=== PATIENT | male | born 1960 ===

== ENCOUNTER 2021-09-03 15:52 | Emergency (ER) | payer BC ==
[2021-09-03 16:15] VITALS: TEMP 98
[2021-09-03] MEDS ORDERED: PROPARACAINE 0.5% OPHTH DROPS 15 ML BTL BOTH EYES STA (16:34)
[2021-09-03 16:36] LABS: HCT 49.1 % (39.0-53.0); HGB 16.7 gm/dL (13.0-17.5); MCH 30.3 pg (25.0-35.0); MCHC 34.1 g/dL (31.0-37.0); MCV 88.9 fL (80.0-100.0); Mean Platelet Volume 7.5; Platelet Count 212 k/uL (150-450); RBC 5.52 m/uL (4.30-5.90); RDW 12.6 % (11.5-15.5); WBC 14.6 k/uL (3.8-10.6)
[2021-09-03 16:53] LABS: ALT 29 U/L (4-49); AST 29 U/L (17-59); African American GFR (CKD) >90 (>60 ml/min/1.73 sqM); Albumin 4.7 g/dL (3.5-5.0); Alkaline Phosphatase 74 U/L (38-126); Anion Gap 12 mmol/L; Blood Urea Nitrogen 12 mg/dL (9-20); Calcium 10.3 mg/dL (8.4-10.2); Carbon Dioxide 21 mmol/L (22-30); Chloride 102 mmol/L (98-107); Glucose 190 mg/dL (74-99); Non-African American GFR(CKD) >90 (>60 ml/min/1.73 sqM); Potassium 4.3 mmol/L (3.5-5.1); Sodium 135 mmol/L (137-145); Total Bilirubin 0.7 mg/dL (0.2-1.3); Total Protein 8.3 g/dL (6.3-8.2)
--- NOTE | 2021-09-03 17:19 | ED ---
General Adult HPI - General Chief complaint: Eye Problems Stated complaint: Neurosymptoms Time Seen by Provider: 09/03/21 16:34 Source: patient, RN notes reviewed Mode of arrival: ambulatory Limitations: no limitations - History of Present Illness Initial comments: 60-year-old gentleman, alert and oriented 4, presents to the emergency room with complaints of blurry vision in his right eye since yesterday. He did have a mild frontal headache on the left side. He did go to [facility] emergency room for evaluation and they did a CTA, labs and eye exam. He was told to follow up with his supervisor [employer] and primary care doctor. Patient has no focal neurological deficits. He states he does feel generalized weakness. He states that he noticed it when he was watching TV yesterday and felt he couldn't read as crisp with the right eye. He does state that the vision is better today than yesterday. States that he feels as though he lost some peripheral vision in the right eye. He has not had a diabetic eye exam in more than 2 years. He does not wear glasses. He does have a history of diabetes, hypertension and high cholesterol. -: days(s) (2) Location: eyes (right) Severity scale (1-10): 0 Associated Symptoms: headaches (frontal) Treatments Prior to Arrival: other ([facility] yesterday) - Related Data Allergies Allergy/AdvReac Type Severity Reaction Status Date / Time No Known Allergies Allergy Verified 09/03/21 16:15 Review of Systems ROS Statement: Those systems with pertinent positive or pertinent negative responses have been documented in the HPI. ROS Other: All systems not noted in ROS Statement are negative. Past Medical History Past Medical History: Diabetes Mellitus, Hyperlipidemia, Hypertension History of Any Multi-Drug Resistant Organisms: None Reported Past Surgical History: Orthopedic Surgery Additional Past Surgical History / Comment(s): shoulder surgery Past Psychological History: No Psychological Hx Reported Smoking Status: Current every day smoker Past Alcohol Use History: None Reported Past Drug Use History: None Reported General Exam Limitations: no limitations General appearance: alert, in no apparent distress Head exam: Present: atraumatic, normocephalic, normal inspection Eye exam: Present: normal appearance, PERRL, EOMI. Absent: scleral icterus, conjunctival injection, nystagmus, periorbital swelling, periorbital tenderness, other (No temporal artery pain) Pupils: Present: normal accommodation. Absent: other (Intraocular pressures on the right 17 on the left 18) Expanded Eyelids: Normal Inspection: Bilateral Pupils: Regular, Round: Bilateral Sclera/Conjunctival: Normal Inspection: Bilateral IOP measured with: Tonopen (Right 17 left 18) ENT exam: Present: normal exam, normal oropharynx, mucous membranes moist Neck exam: Present: normal inspection. Absent: tenderness, meningismus, full ROM, lymphadenopathy, thyromegaly Respiratory exam: Present: normal lung sounds bilaterally. Absent: respiratory distress, wheezes, rales, rhonchi, stridor Cardiovascular Exam: Present: regular rate, normal rhythm, normal heart sounds. Absent: systolic murmur, diastolic murmur, rubs, gallop, clicks GI/Abdominal exam: Present: soft, normal bowel sounds. Absent: distended, tenderness, guarding, rebound, rigid Extremities exam: Present: normal inspection, full ROM, normal capillary refill. Absent: tenderness, pedal edema, joint swelling, calf tenderness Neurological exam: Present: alert, CN II-XII intact. Absent: oriented X3 Psychiatric exam: Present: normal affect, normal mood Skin exam: Present: warm, dry, intact, normal color. Absent: rash, cyanosis, di aphoretic Course Vital Signs 09/03/21 09/03/21 09/03/21 16:10 17:00 17:30 Temperature 98 F Pulse Rate 87 95 86 Respiratory 16 18 18 Rate Blood Pressure 179/98 186/95 190/92 O2 Sat by Pulse 99 96 95 Oximetry 09/03/21 09/03/21 09/03/21 18:00 18:30 19:00 Temperature Pulse Rate 82 80 81 Respiratory 18 18 18 Rate Blood Pressure 162/93 154/98 166/97 O2 Sat by Pulse 95 94 L 95 Oximetry 09/03/21 19:30 Temperature Pulse Rate 82 Respiratory 18 Rate Blood Pressure 172/101 O2 Sat by Pulse 93 L Oximetry Medical Decision Making - Medical Decision Making This is a well-appearing 60-year-old male, alert and oriented times for the presents to the emergency room with family member complaining of right eye vision changes since yesterday. He went to [facility] and had a CTA of the brain, lab work and was told that they were negative and he could follow up with his primary care doctor. He states that the patient has improved since yesterday in the right however he continues to have blurred vision. He denies any pain with eye movement. His visual acuity is 20/40 in the left eye 20/100 in the right eye. Pupils are equal and reactive. Ollie-Pen measurements are 17 in the right eye and 18 the left eye. Patient denies any headache there is no temporal artery tenderness. I did speak with Dr. Lynn with ophthalmology who stated he can followup with him in the office tomorrow. Case discussed with Dr. Umanzor - Lab Data Result diagrams: 09/03/21 16:25 09/03/21 16:25 Lab Results 09/03/21 09/03/21 09/03/21 Range/Units 16:25 16:25 16:25 WBC 14.6 H (3.8-10.6) k/uL RBC 5.52 (4.30-5.90) m/uL Hgb 16.7 (13.0-17.5) gm/dL Hct 49.1 (39.0-53.0) % MCV 88.9 (80.0-100.0) fL MCH 30.3 (25.0-35.0) pg MCHC 34.1 (31.0-37.0) g/dL RDW 12.6 (11.5-15.5) % Plt Count 212 (150-450) k/uL MPV 7.5 Sodium 135 L (137-145) mmol/L Potassium 4.3 (3.5-5.1) mmol/L Chloride 102 (98-107) mmol/L Carbon Dioxide 21 L (22-30) mmol/L Anion Gap 12 mmol/L BUN 12 (9-20) mg/dL Creatinine 0.73 (0.66-1.25) mg/dL Est GFR (CKD-EPI)AfAm >90 (>60 ml/min/1.73 sqM) Est GFR (CKD-EPI)NonAf >90 (>60 ml/min/1.73 sqM) Glucose 190 H (74-99) mg/dL Calcium 10.3 H (8.4-10.2) mg/dL Total Bilirubin 0.7 (0.2-1.3) mg/dL AST 29 (17-59) U/L ALT 29 (4-49) U/L Alkaline Phosphatase 74 (38-126) U/L Troponin I <0.012 (0.000-0.034) ng/mL Total Protein 8.3 H (6.3-8.2) g/dL Albumin 4.7 (3.5-5.0) g/dL Disposition Clinical Impression: Vision changes Disposition: HOME SELF-CARE Condition: Good Additional Instructions: Follow-up with ophthalmology tomorrow morning, Dr. Lynn. Return if any new or worsening symptoms. Continue medications as previously prescribed for Diabetes and blood pressure. Also contact your primary care doctor as your blood pressure has been elevated in the emergency room yesterday and today. Is patient prescribed a controlled substance at d/c from ED?: No Referrals: None,Stated [REFERRING] - 1-2 days Josias Lynn MD [STAFF PHYSICIAN] - 1-2 days Jonathan Villavicencio DO [Primary Care Provider] - 1-2 days Time of Disposition: 20:05
[2021-09-03 20:01] VITALS: BP 172/101; PULSE 82; RESP 18
[2021-09-03] MEDS ORDERED: MAG HYDROX/AL HYDROX/SIMETH 30 ML, HYOSCYAMINE ELIXIR 10 ML, LIDOCAINE VISCOUS 2% 10 ML PO STA ×3 (20:29)
== END 2021-09-04 20:34 | disposition home or self-care (01) ==
LOC: EC 15:52
DX: H53.8 Other visual disturbances (principal); E11.9 Type 2 diabetes mellitus without complications; E78.5 Hyperlipidemia, unspecified; I10 Essential (primary) hypertension; F17.200 Nicotine dependence, unspecified, uncomplicated
CPT/HCPCS: 36415; 80053; 84484; 85027; 93005; 99284